=== PATIENT | male | born 1930 | race African-American/Black ===

== ENCOUNTER 2016-11-14 21:51 | Inpatient (IN) | payer OTHER ==
[~2016-11-14] VITALS: Ht 182.9 cm; Wt 70.3 kg
--- NOTE | ~2016-11-14 | EKG ---
[address] [employer] [place] [address] ELECTROCARDIOGRAM REPORT Name: DAILY GONZALES JR Room #: 545- ADM IN M.R.#: [id number] Admission: 11/15/16 Attend Phys: Sekou Whitfield MD Discharge: Date of : 28 Report #: [id number] THIS REPORT FOR: //name// [facility] Test Date: 2016-11-19 Test Time: 10:58:44 Pat Name: DAILY GONZALES Department: Room: 545 P Gender: M [employer] Vendor: EDDIE : 1930 Requested By: Wiley Rose Order Number: [id number] MD: Jason Ng Measurements Intervals [place] Rate: 61 P: 57 IN: 180 QRS: -76 QRSD: 88 T: 77 QT: 433 QTc: 437 Interpretive Statements Sinus rhythm Left anterior fascicular block Abnormal R-wave progression, early transition Compared to ECG 11/14/2016 23:08:44 Atrial premature complex(es) no longer present Electronically Signed On 11-20-2016 8:28:17 CDT by Jason Ng [email or web address] <ELECTRONICALLY SIGNED> By: Jason Ng MD, [facility] 11/20/16 0828 1058 1058 Jason Ng MD, [facility] /EPI
--- NOTE | ~2016-11-14 | HC ---
[facility] [place] [address] CONSULTATION Name: DAILY GONZALES Room #: 545-P [facility] IN ..#: [id number] Admission: 11/15/16 Attend Phys: Sekou Whitfield MD Discharge: Date of : 28 Report #: [id number] THIS REPORT FOR: //name// CC: Sekou HERNANDEZ DATE OF SERVICE: 11/15/2016 HISTORY OF PRESENT ILLNESS: The patient is an 86-year-old male who fell multiple times and was admitted to the hospital with hip pain. He was also noted to have voiding difficulty and they were unable to place a Watts catheter in the Emergency Room. He states he has had longstanding BPH with a decreased stream, hesitancy, dribbling, difficulty starting a stream and incomplete emptying. He has been on Flomax and Avodart. He has not had previous prostate surgery. He has had previous prostatitis. MEDICATIONS: Flomax, Avodart, valsartan, Protonix, Lipitor and hydrochlorothiazide. FAMILY HISTORY: Per the chart. SOCIAL HISTORY: Per the chart. REVIEW OF SYSTEMS: Per the chart. PHYSICAL EXAMINATION: On examination, his abdomen is distended. IMPRESSION AND PLAN: Urinary retention/benign prostatic hypertrophy. I attempted to place a Coude catheter. It also would not go into the bladder. We will plan for cystoscopy and Watts catheter placement. Continue the patient on Flomax 0.4 mg daily and Avodart 0.5 mg daily. We will plan to leave his Watts catheter indwelling for at least 1 week. PROCEDURE NOTE DESCRIPTION OF PROCEDURE: The patient's penis was prepped and draped in the usual fashion. The flexible ureteroscope was then passed into the urethra. The patient was noted to have a deep false passage. He was also noted to have a markedly enlarged prostate with significant bladder outlet obstruction. I was able to get the cystoscope into the bladder. A 0.035 wire was then placed and a 16-[place] tip catheter was placed which began draining urine which was noted to be light pink. The patient tolerated the procedure well. By: [id number] Yrn Zarate MD /tequila
--- NOTE | ~2016-11-14 | EKG ---
[address] [place] [address] ELECTROCARDIOGRAM REPORT Name: DAILY GONZALES Room #: 545-P ADM IN M.R.#: [id number] Admission: 11/15/16 Attend Phys: Sekou Whitfield MD Discharge: Date of : 28 Report #: [id number] THIS REPORT FOR: //name// [facility] ED Test Date: 2016-11-14 Test Time: 23:08:44 Pat Name: DAILY GONZALES Department: Room: 54 Gender: M Rn Placement: Landy RAJAN : 1930 Requested By: Dwain Jacob Order Number: [id number] MD: Jason Ng Measurements Intervals [place] Rate: 64 P: 64 [place]: 164 QRS: -82 QRSD: 85 T: 97 QT: 427 QTc: 441 Interpretive Statements Sinus rhythm Atrial premature complex Left anterior fascicular block Abnormal R-wave progression, late transition Nonspecific T abnormalities Compared to ECG 09/26/2011 16:00:13 Atrial premature complex(es) now present T-wave abnormality now present Electronically Signed On 11-15-2016 10:59:34 CDT by Jason Ng [email or web address] <ELECTRONICALLY SIGNED> By: Jason Ng MD, [facility] 11/15/16 1059 [id number] [id number] Jason Ng MD, [facility] /EPI
[~2016-11-14 21:51] MED LIST: ACETAMINOPHEN-1 EAC1 PO; ADULT LOW DOSE81 MG; AVODART0.5 MG; DIOVAN320 MG; FLOMAX; HYDROCHLOROTHIA25 M2; LIPITOR40 MG; NAPROSYN375 MG PO; NORCO 5-325 TA1 EACH PO; PROTONIX40 M2
[2016-11-14 21:59] VITALS: BP 131/83
[2016-11-14 23:25] LABS: ABSOLUTE NEUTROPHILS 4.8 thou/uL (1.4-8.2); BASOPHILS 0.2 % (0.0-2.0); EOSINOPHILS 1.5 % (0.0-3.0); HEMATOCRIT 42.5 % (42.0-52.0); LYMPHOCYTES 16.9 % (24.0-44.0); MCH 28.5 pg (26.0-34.0); MCHC 32.9 g/dL (28.0-37.0); MCV 86.8 fL (80.0-100.0); MONOCYTES 9.7 % (1.0-8.0); PLATELET COUNT 180 thou/uL (150-400); POLYS 71.7 % (36.0-66.0); RDW 14.5 % (10.5-14.5); WBC 6.6 thou/uL (4.0-11.0)
[2016-11-14 23:27] LABS: MANUAL DIFF NO
[2016-11-14 23:31] LABS: ANION GAP 6 mmol/L (7-16); BUN 18 mg/dL (7-18); CHLORIDE 107 mmol/L (98-107); CO2 30 mmol/L (21-32); CREATININE 1.4 mg/dL (0.7-1.3); GLUCOSE 89 mg/dL (74-106); POTASSIUM 4.1 mmol/L (3.5-5.1); SODIUM 143 mmol/L (136-145)
[2016-11-14 23:43] LABS: ALBUMIN 3.6 g/dL (3.4-5.0); ALKALINE PHOSPHATASE 96 U/L (46-116); MAGNESIUM 1.9 mg/dL (1.8-2.4); NT-PRO BRAIN NAT PEPTIDE 176 pg/mL (<300); SGOT 31 U/L (15-37); SGPT 37 U/L (30-65); TOTAL BILIRUBIN 0.6 mg/dL (<0.1-1.0); TROPONIN-I < 0.04 ng/mL (<0.04-0.07)
[2016-11-14 23:55] LABS: PROTIME 10.1 Seconds (9.3-11.4)
[2016-11-15] LABS: APTT 27.8 Seconds (24.5-32.8)
[2016-11-15 00:01] LABS: LARGE PLATELETS OCCASIONAL
[2016-11-15 04:33] VITALS: BP 132/65
[2016-11-15 04:43] VITALS: BP 147/82
[2016-11-15] MEDS ORDERED: WELLBUTRIN XL150 MG PO (13:37)
[2016-11-15] MEDS ORDERED: REMERON15 MG PO (13:38)
[2016-11-15] MEDS ORDERED: FINASTERIDE5 MG PO (13:38)
[2016-11-15] MEDS ORDERED: VITAMIN D3400 UNIT PO (13:40)
[2016-11-15] MEDS ORDERED: NAMENDA 10 MG T10 MG PO (13:42)
[2016-11-15 21:07] VITALS: BP 128/57
[2016-11-16 00:37] LABS: URINE BLOOD 3+ (Negative); URINE COLOR RED; URINE GLUCOSE-RANDOM* NEGATIVE (Negative); URINE KETONES TRACE (Negative); URINE LEUKOCYTES-REFLEX 3+ (Negative); URINE PROTEIN (DIPSTICK) 2+ (Negative); URINE SPECIFIC GRAVITY 1.015 (1.003-1.035)
[2016-11-16 00:46] LABS: ICTOTEST (BILI CONFIRMATORY) Negative (Negative); URINE BILIRUBIN NEGATIVE (Negative)
[2016-11-16 00:47] LABS: SQUAMOUS None Seen /LPF (0-3)
[2016-11-16 00:48] LABS: CASTS None Seen /LPF (None Seen); RENAL EPITHELIAL CELLS 0-3 Few /LPF (None Seen); URINE RBC >20 Many /HPF (0-2); URINE WBC-REFLEX >25 Many /HPF (0-5); WBC CLUMPS Many (None Seen)
[2016-11-16 00:49] LABS: CRYSTALS None Seen /LPF (None Seen)
[2016-11-16 04:09] LABS: HEMATOCRIT 40.7 % (42.0-52.0); HEMOGLOBIN 13.4 gm/dL (14.0-18.0); MCH 28.8 pg (26.0-34.0); MCV 87.4 fL (80.0-100.0); RBC 4.65 mil/uL (4.50-6.00); RDW 14.2 % (10.5-14.5)
[2016-11-16 04:24] LABS: CALCIUM 8.4 mg/dL (8.5-10.1); CREATININE 1.1 mg/dL (0.7-1.3); POTASSIUM 3.9 mmol/L (3.5-5.1)
[2016-11-16 06:21] VITALS: BP 110/54
[2016-11-16 07:15] VITALS: BP 98/61
[2016-11-16 08:06] VITALS: BP 113/57
[2016-11-16 16:31] VITALS: BP 145/61
[2016-11-16 20:00] VITALS: BP 128/69
[2016-11-17 04:27] VITALS: BP 167/75
[2016-11-17 04:58] LABS: HEMATOCRIT 42.7 % (42.0-52.0); MCH 28.5 pg (26.0-34.0); MCHC 32.7 g/dL (28.0-37.0); MCV 87.3 fL (80.0-100.0); RBC 4.89 mil/uL (4.50-6.00); RDW 14.3 % (10.5-14.5); WBC 9.7 thou/uL (4.0-11.0)
[2016-11-17 05:28] LABS: CALCIUM 8.8 mg/dL (8.5-10.1)
[2016-11-17 07:27] VITALS: BP 149/84
[2016-11-17 20:00] VITALS: BP 136/70
[2016-11-18 04:00] VITALS: BP 139/71
[2016-11-18 07:08] VITALS: BP 129/79
[2016-11-18 15:38] VITALS: BP 128/63
[2016-11-18 17:14] VITALS: BP 128/63
[2016-11-18 19:50] VITALS: BP 126/49
[2016-11-19] VITALS (9 sets, daily range): BP systolic 128–157; BP diastolic 63–79
[2016-11-20 00:34] VITALS: BP 132/66
[2016-11-20 09:55] VITALS: BP 137/61
[2016-11-20 16:45] VITALS: BP 132/64
[2016-11-20 19:56] VITALS: BP 122/67
[2016-11-21 03:59] VITALS: BP 121/68
[2016-11-21 08:00] VITALS: BP 123/60
[2016-11-21] MEDS ORDERED: MIRALAX17 GM PO (12:31)
[2016-11-21 18:02] VITALS: BP 97/37
[2016-11-21 19:38] VITALS: BP 144/72
[2016-11-22 03:31] VITALS: BP 130/63
[2016-11-22 08:00] VITALS: BP 107/58
[2016-11-22 16:49] VITALS: BP 100/50
[2016-11-22 19:04] VITALS: BP 105/53
[2016-11-23 07:55] VITALS: BP 115/57
[2016-11-23 10:07] LABS: ABSOLUTE NEUTROPHILS 5.2 thou/uL (1.4-8.2); BASOPHILS 0.4 % (0.0-2.0); EOSINOPHILS 2.8 % (0.0-3.0); HEMATOCRIT 40.9 % (42.0-52.0); HEMOGLOBIN 13.4 gm/dL (14.0-18.0); MCH 28.6 pg (26.0-34.0); MCHC 32.7 g/dL (28.0-37.0); MCV 87.7 fL (80.0-100.0); MONOCYTES 9.8 % (1.0-8.0); RBC 4.66 mil/uL (4.50-6.00); RDW 13.6 % (10.5-14.5); WBC 7.2 thou/uL (4.0-11.0)
[2016-11-23 10:11] LABS: MANUAL DIFF NO
[2016-11-23 10:16] LABS: CALCIUM 8.9 mg/dL (8.5-10.1); CREATININE 1.3 mg/dL (0.7-1.3); POTASSIUM 3.9 mmol/L (3.5-5.1)
[2016-11-23 10:41] LABS: PLATELET COUNT 175 thou/uL (150-400); PLATELET ESTIMATE NORMAL
== END 2016-11-23 14:42 | DRG 682 ==
LOC: ER 21:51 → 5S 11-15 01:45 → EROBS 11-15 01:45 → 5S 11-15 04:52
PROVIDERS: Emergency Medicine; Hospitalist; Nurse Practitioner; Nurse Practitioner Acute Care
PROC: 0TJ98ZZ Inspection of Ureter, Via Natural or Artificial Opening Endoscopic (ICD-10-PCS; principal; 2016-11-15)
DX: N17.0 Acute kidney failure with tubular necrosis (principal); G92 Toxic encephalopathy; N39.0 Urinary tract infection, site not specified; M62.82 Rhabdomyolysis; K56.41 Fecal impaction; E78.00 Pure hypercholesterolemia, unspecified; J45.909 Unspecified asthma, uncomplicated; N40.0 Benign prostatic hyperplasia without lower urinary tract symptoms; R33.9 Retention of urine, unspecified; I12.9 Hypertensive chronic kidney disease with stage 1 through stage 4 chronic kidney disease, or unspecified chronic kidney disease; N18.9 Chronic kidney disease, unspecified; F03.90 Unspecified dementia, unspecified severity, without behavioral disturbance, psychotic disturbance, mood disturbance, and anxiety; W18.39XA Other fall on same level, initial encounter; Z79.899 Other long term (current) drug therapy; Z90.49 Acquired absence of other specified parts of digestive tract; Z87.891 Personal history of nicotine dependence; Y93.89 Activity, other specified; Y92.89 Other specified places as the place of occurrence of the external cause; Y99.8 Other external cause status; Z23 Encounter for immunization
CPT/HCPCS: 10086